=== PATIENT | female | born 1985 | race Caucasian/White ===

== ENCOUNTER 2016-08-19 11:47 | Day surgery (SDC) | payer OTHER ==
[~2016-08-19 11:47] MED LIST: ACETAMINOPHEN 500 MG TAB PO ONE; PREGABALIN 150 MG CAP PO ONE; SCOPOLAMINE HYDROBROMIDE 1.5 MG PATCH TD ONE; ceFAZolin 2 GM/DEXTROSE 100 ML IV ONE
[2016-08-19] MEDS ORDERED: BUPIVACAINE/EPI 0.25% 30 ML SDV ONE (12:03)
[2016-08-19] MEDS ORDERED: SKIN ADHESIVE (DERMABOND) 1 EACH TP ONE ×2 (12:03→16:56)
[2016-08-19] MEDS ORDERED: LR 1,000 ML IV ONE (13:01)
[2016-08-19] MEDS ORDERED: LIDOCAINE 1% 5 ML SDV ID PRN (13:01)
[2016-08-19] MEDS ORDERED: CEFAZOLIN 2 GM/DEXTROSE/100 ML BAG IV ONE (13:05)
[2016-08-19] MEDS ORDERED: SCOPOLAMINE HYDROBROMIDE 1.5 MG PATCH TD ONE (13:05)
[2016-08-19] MEDS ORDERED: MIDAZOLAM 2 MG/2 ML VIAL ONE ×2 (13:33→13:45)
[2016-08-19] MEDS ORDERED: fentaNYL 100 MCG/2 ML INJ ONE ×3 (13:41→17:25)
[2016-08-19] MEDS ORDERED: PROPOFOL 200 MG/20 ML VIAL ONE ×4 (13:41→16:54)
[2016-08-19] MEDS ORDERED: LIDOCAINE 2% 5 ML SDV ONE (14:12)
[2016-08-19] MEDS ORDERED: NEOSTIGMINE METHYLSULFATE 5 MG/5 ML SYR ONE (14:12)
[2016-08-19] MEDS ORDERED: KETOROLAC 30 MG/1 ML SDV ONE (14:12)
[2016-08-19] MEDS ORDERED: ONDANSETRON 4 MG/2 ML VIAL ONE ×2 (14:12→17:25)
[2016-08-19] MEDS ORDERED: GLYCOPYRROLATE 0.2 MG/1 ML VIAL ONE ×2 (14:12→14:13)
[2016-08-19] MEDS ORDERED: METOCLOPRAMIDE 10 MG/2 ML VIAL ONE (14:12)
[2016-08-19] MEDS ORDERED: DEXAMETHASONE 4 MG/ML VIAL ONE ×2 (14:12→14:13)
[2016-08-19] MEDS ORDERED: ROCURONIUM 50 MG/5 ML VIAL ONE (14:12)
[2016-08-19] MEDS ORDERED: OXYCODONE/APAP 5/325 TAB ONE (18:17)
== END 2016-08-19 19:30 | disposition home or self-care (01) ==
LOC: FSGY 11:47
PROVIDERS: ATTEND Orthopaedic Surgery Sports Medicine
PROC: 0LML0ZZ Reattachment of Right Upper Leg Tendon, Open Approach (ICD-10-PCS; principal; 2016-08-19 13:38)
DX: S86.111A Strain of other muscle(s) and tendon(s) of posterior muscle group at lower leg level, right leg, initial encounter (principal)
CPT/HCPCS: C1713; J0690; J1100; J1885; J2250; J2405; J2704; J2710; J2765; J3010